=== PATIENT | male | born 1970 | race Caucasian/White ===

== ENCOUNTER 2016-09-23 09:36 | Emergency (ER) | payer OTHER ==
[2016-09-23 09:54] VITALS: BP 136/103; PULSE 60; RESP 12; TEMP 97.5; O2SAT 96
--- NOTE | 2016-09-23 10:22 | UCPHY ---
H & P Time Seen by Provider: 09/23/16 09:51 Patient Type: New HPI/ROS: HPI Left hand injury. 45-year-old male by private vehicle. He complains of pain and swelling to the dorsal, ulnar aspect of his left hand. He reports that last night he was taking his dog out when he slipped and fell on an outstretched left hand. He denies any other injury or complaint. He does have a prior history of a left 5th metatarsal boxer's fracture which she sustained at the age of 17. ROS: Constitutional: No fever, no chills. No weakness. Musculoskeletal: No back pain. No neck pain. As above. No other extremity pain. Skin: No rashes. No lacerations or abrasions. Neurological: No focal weakness or altered sensation. Past medical history: As above. Social history: Here by himself. He is going on a business trip to [place] later today. He returns . Nonsmoker. Physical Exam: General Appearance: Alert, no distress. This patient is responding to questions appropriately and in full sentences. This patient appears well- hydrated and well-nourished. Eyes: Pupils equal and round no pallor or injection. No lid edema, erythema or injection. Left hand and wrist exam: Significant for a swelling with tenderness on palpation over the left mid 4th metatarsal dorsally. No snuffbox tenderness on palpation. No pain on axial compression of the thumb. The other bony aspects of the hand wrist elbow and shoulder are nontender on palpation. All joints in the left upper extremity range without any pain or impingement. The left hand is neurovascularly intact. Neurological: Motor sensory function is grossly intact. Cranial nerves are normal. Gait is normal. Skin: Warm and dry, no rashes. Extremities are symmetrical except noted. All joints range without pain or impingement except noted. Database: EKG: Imaging: Left hand x-ray series: Significant for an oblique fracture mid 4th metacarpal. Minimal displacement. No articular involvement. Interpreted by me. Procedures: Procedure: Splint placement. A ulnar gutter splint was applied left hand and wrist. After application of the splint I returned and re-examined the patient. The splint was adequately immobilizing the joint and distal to the splint the patient's circulation and sensation was intact. Emergency department course: From triage, x-rays were obtained. Patient declines pain medication. Patient evaluated at 10:20 a.m.. X-rays discussed with him. Need for orthopedic follow -up reviewed. Splint placed as above. Patient will go on his business trip. He will call his swine extension field specialist or 1 that I refer him to for follow-up when he returns this . Return to emergency department precautions discussed. All of his questions were answered. He was discharged in good condition. Differential Diagnosis: The differential diagnosis on this patient includes but is not limited to boxer' s fracture, other left hand from. Fracture of the left wrist, head injury, other significant traumatic injury the noted unlikely. This represents a partial list of diagnoses considered. These considerations are based on history , physical exam, past history, reassessment and diagnostic testing. Smoking Status: Unknown if ever smoked Constitutional: Initial Vital Signs Temperature (C) 36.4 C 09/23/16 09:52 Heart Rate 60 09/23/16 09:52 Respiratory Rate 12 09/23/16 09:52 Blood Pressure 136/103 H 09/23/16 09:52 O2 Sat (%) 96 09/23/16 09:52 O2 Delivery Mode Room Air Allergies/Adverse Reactions: No Known Allergies Allergy (Unverified 09/23/16 09:51) Home Medications: Medication Instructions Recorded Hydrocodone/APAP 5/325 [[place] 1 - 2 tab PO Q4-6PRN PRN #10 tab 09/23/16 5/325 (*)] Departure - Departure Disposition: Home, Routine, Self-Care Clinical Impression: Fracture of fourth metacarpal bone of left hand Condition: Good Instructions: Hand Fracture (ED), Boxer Fracture (ED) Additional Instructions: Read and follow provided instructions. Follow-up with your swine extension field specialist with the 1 I have referred you to for re-evaluation and further management we return from [place] of this . Splint is to remain in place until evaluated by Orthopedics. Ibuprofen dosin mg every 6 hours with meals for the next 3 days only. [place]/Percocet dosin-2 every 4-6 [address] for [address] not drive on this medication. Return to the emergency department for worsening pain, discoloration, loss of sensation or other serious concerns. Referrals: Carrington Escobar MD [Medical Doctor] - As per Instructions Anant Broussard MD [Medical Doctor] - As per Instructions Prescriptions: Hydrocodone/APAP 5/325 [[place] 5/325 (*)] 1 - 2 tab PO Q4-6PRN PRN #10 tab PRN Reason: Pain, Moderate - PQRS PQRS Measurement: Not applicable.
--- NOTE | 2016-09-23 10:23 | DX ---
Left Hand - 3 views 9:56 a.m. Indication: Trauma. Pain. Technique: AP, oblique, and lateral views. Comparison: None Findings: An oblique midshaft fracture courses through the proximal diaphysis of the fourth metacarpa l. The distal fracture fragment is translated ulnarly 2 mm and has minimal apex dorsal angulation. No involvement of the joint space. No other fractures. Impression: Acute minimally displaced and angulated fourth metacarpal fracture.
== END 2016-09-23 10:59 | disposition home or self-care (01) ==
LOC: CED 09:36
PROC: 2W3FX1Z Immobilization of Left Hand using Splint (ICD-10-PCS; principal; 2016-09-23)
DX: S62.325A Displaced fracture of shaft of fourth metacarpal bone, left hand, initial encounter for closed fracture (principal); W01.0XXA Fall on same level from slipping, tripping and stumbling without subsequent striking against object, initial encounter; Y93.K1 Activity, walking an animal
CPT/HCPCS: 29125-PO; 73130-PO; 99203-PO; G0463-PO